=== PATIENT | female | born 1980 | race African-American/Black ===

== ENCOUNTER 2019-05-26 11:29 | Outpatient (CLI) | payer OTHER | END 2019-05-26 11:30 | disposition home or self-care (01) | LOC: DTY/OP 11:29 | PROVIDERS: ATTEND Surgery | DX: E66.01 Morbid (severe) obesity due to excess calories (principal) | CPT/HCPCS: 97802 ==

== ENCOUNTER 2019-06-26 16:00 | Outpatient (CLI) | payer OTHER | END 2019-06-26 16:01 | disposition home or self-care (01) | LOC: DTY/OP 16:00 | PROVIDERS: ATTEND Surgery | DX: E66.01 Morbid (severe) obesity due to excess calories (principal) | CPT/HCPCS: 97802 ==

== ENCOUNTER 2019-07-28 16:00 | Outpatient (CLI) | payer OTHER | END 2019-07-28 16:01 | disposition home or self-care (01) | LOC: DTY/OP 16:00 | PROVIDERS: ATTEND Surgery | DX: E66.01 Morbid (severe) obesity due to excess calories (principal) | CPT/HCPCS: 97802 ==

== ENCOUNTER 2019-08-28 16:00 | Outpatient (CLI) | payer OTHER | END 2019-08-28 16:01 | disposition home or self-care (01) | LOC: DTY/OP 16:00 | PROVIDERS: ATTEND Surgery | DX: E66.01 Morbid (severe) obesity due to excess calories (principal) | CPT/HCPCS: 97802 ==

== ENCOUNTER 2020-01-02 06:56 | Outpatient (CLI) | payer OTHER ==
--- NOTE | 2020-01-02 09:40 | RAD ---
XR Chest Pa Lat STANDARD HISTORY: Preop COMPARISON: 05/29/2014 FINDINGS: The heart size is normal. The lungs are well expanded without focal areas of consolidation, pneumothorax or pleural effusions. IMPRESSION: No radiographic evidence of acute cardiopulmonary process.
[2020-01-02 11:11] LABS: #Basophils 0.1 thou/uL (0.0-0.2); #Eosinphils 0.1 thou/uL (0.0-0.7); #Lymphocytes 1.4 thou/uL (1.20-3.40); #Monocytes 0.6 thou/uL (0.11-0.59); #Neutrophils 5.8 thou/uL (1.40-6.50); %Basophils 1.3 % (0.0-1.0); %Eosinophils 1.8 % (0.0-10.0); %Lymphocytes 17.4 % (21.0-51.0); %Monocytes 7.7 % (0.0-10.0); %Neutrophils 71.8 % (42.0-75.0); Hemoglobin 13.1 g/dL (12.0-16.0); Mean Corpuscular HGB CONC 33.5 g/dL (32.0-36.0); Mean Corpuscular Hemoglobin 27.6 pg (27.0-31.0); Mean Corpuscular Volume 82.6 fL (78.0-98.0); Mean Platelet Volume 8.6 fL (7.4-10.4); Platelet Count 294 thou/uL (130-400); RBC Distribution Width 12.9 % (11.5-14.5); Red Blood Cell (RBC) Count 4.75 mill/uL (4.20-5.40); White Blood Cell (WBC) Count 8.1 thou/uL (4.8-10.8)
[2020-01-02 11:21] LABS: BHCG - Serum Negative (NEGATIVE); Pregs Control Background? CLEAR/WHITE (CLR/WHITE); Pregs Control Bar Appear? YES (CONTROL BAR)
[2020-01-02 12:48] LABS: Hemoglobin A1c 5.3 % (4.0-6.0)
[2020-01-02 13:10] LABS: ALT (SGPT) 18 U/L (8-55); AST (SGOT) 19 U/L (5-34); Albumin 4.3 g/dL (3.5-5.0); Alkaline Phosphatase 69 U/L (40-110); Anion Gap 10 mmol/L (10-20); BUN (Urea Nitrogen) 16 mg/dL (7.0-18.7); Bilirubin, Total 0.7 mg/dL (0.2-1.2); Calc. Creatinine Clearance 0 mL/min (70-130); Calcium 9.2 mg/dL (7.8-10.44); Carbon Dioxide 27 mmol/L (22-29); Chloride 104 mmol/L (98-107); Estimated GFR-MDRD 77; Glucose 82 mg/dL (70-105); Protein, Total 7.3 g/dL (6.0-8.3); Sodium 137 mmol/L (136-145)
[2020-01-02 17:21] LABS: SARS-CoV-2 MS2 Positive; SARS-CoV-2 N Gene Negative; SARS-CoV-2 S Gene Negative; SARS-CoV-2 by NAA Not Detected (NotDetected); SARS-CoV-2 orf1ab Negative
--- NOTE | 2020-01-09 13:19 | EKG ---
Test Reason : EKG Blood Pressure : / mmHG Vent. Rate : 069 BPM Atrial Rate : 069 BPM P-R Int : 192 ms QRS Dur : 070 ms QT Int : 380 ms P-R-T Axes : 064 077 023 degrees QTc Int : 407 ms Normal sinus rhythm Normal ECG No previous ECGs available Confirmed by DR. Haroon FERNANDEZ ([id number]) on 01/09/2020 1:19:28 PM Referred By: DR ESCAMILLA Confirmed By:DR. Haroon FERNANDEZ
== END 2020-01-02 06:57 | disposition home or self-care (01) ==
LOC: LABBT 06:56 → SCSRAD 06:57
PROVIDERS: ATTEND Surgery
DX: Z01.818 Encounter for other preprocedural examination (principal); E66.01 Morbid (severe) obesity due to excess calories; Z20.828 Contact with and (suspected) exposure to other viral communicable diseases
CPT/HCPCS: 71046; 80053; 83036; 84703; 85025; 87635; 93005; 93010; U0003

== ENCOUNTER 2020-01-02 10:30 | Inpatient (IN) | payer OTHER ==
[2020-01-02 13:42] VITALS: BMI 42.0
[2020-01-05] MEDS ORDERED: Midazolam HCl 2 mg/2 ml Vial ONE (11:47)
[2020-01-05] MEDS ORDERED: Scopolamine 1.5 mg/72 hour Patch ONE (11:47)
[2020-01-05] MEDS ORDERED: Fentanyl 100 MCG/2 ML VIAL ONE ×3 (12:00→14:27)
[2020-01-05] MEDS ORDERED: Promethazine HCl 25 MG/ML VIAL SLOW IVP PRN (12:08)
[2020-01-05] MEDS ORDERED: Ketorolac Tromethamine 30 MG/ML VIAL IVP PRN (12:08)
[2020-01-05] MEDS ORDERED: Ondansetron HCl/PF 4 MG/2 ML Vial IVP PRN (12:08)
[2020-01-05] MEDS ORDERED: Promethazine HCl 25 MG/ML VIAL IM PRN ×3 (12:08→14:16)
[2020-01-05] MEDS ORDERED: Bupivacaine/Epinephrine 0.25% 30 ML VIAL ONE ×2 (12:17)
[2020-01-05] MEDS ORDERED: Ondansetron PF 4 MG/2 ML Vial IVP PRN ×2 (13:25→14:16)
[2020-01-05] MEDS ORDERED: Dextrose 5% in Water 1,000 ML IV PRN (13:25)
[2020-01-05] MEDS ORDERED: Dextrose 50% Abboject 50 ML SYRINGE SLOW IVP PRN (13:25)
[2020-01-05] MEDS ORDERED: hydrALAZINE 20 MG/ML VIAL SLOW IVP PRN (13:25)
[2020-01-05] MEDS ORDERED: Hydrocodone-Acetamin 15 ML UDCUP PO PRN ×2 (13:25→14:33)
[2020-01-05] MEDS ORDERED: diphenhydrAMINE 50 MG/ML VIAL IVP PRN ×2 (13:25→14:16)
[2020-01-05] MEDS ORDERED: PROPOFOL 200 MG/20 ML VIAL ONE (13:55)
[2020-01-05] MEDS ORDERED: Dexamethasone 20 MG/5 ML VIAL ONE (13:55)
[2020-01-05] MEDS ORDERED: Glycopyrrolate 0.2 MG/ML 5 ML SYRINGE ONE (13:55)
[2020-01-05] MEDS ORDERED: Ondansetron PF 4 MG/2 ML Vial ONE (13:55)
[2020-01-05] MEDS ORDERED: Rocuronium Bromide 10 MG/ML (10ML VIAL) ONE (13:55)
[2020-01-05] MEDS ORDERED: Lidocaine 1% PF 5 ML VIAL ONE (13:55)
[2020-01-05] MEDS ORDERED: diphenhydrAMINE 25 MG CAP PO PRN (14:16)
[2020-01-05] MEDS ORDERED: diphenhydrAMINE 50 MG/ML VIAL IM PRN (14:16)
[2020-01-05] MEDS ORDERED: Naloxone HCl 0.4 mg/ml Vial IV PRN (14:16)
[2020-01-05] MEDS ORDERED: HYDROmorphone 10 mg/100 ml CADD IVPB PRN (14:16)
[2020-01-05] MEDS ORDERED: Zolpidem Tartrate 5 MG TAB PO PRN (14:16)
[2020-01-05] MEDS ORDERED: Communication Order-Pharmacy FS SCH (14:30)
[2020-01-05] MEDS: D5 1/2 NS w/20 mEq KCL 1,000 ML IV SCH (16:10)
--- NOTE | 2020-01-05 17:15 | OP ---
DATE OF PROCEDURE: 01/05/2020 PREOPERATIVE DIAGNOSIS: Morbid obesity with a body mass index of 42. POSTOPERATIVE DIAGNOSES: 1. Morbid obesity with a body mass index of 42. 2. Paraesophageal hiatal hernia. PROCEDURES PERFORMED: 1. Laparoscopic sleeve gastrectomy with Ethicon staple line reinforcements and 38-[place] bougie. 2. Esophagogastroduodenoscopy. 3. Paraesophageal hiatal hernia repair, laparoscopic. ANESTHESIA: General. ESTIMATED BLOOD LOSS: 50 mL. COMPLICATIONS: None. SPECIMENS: None. FINDINGS: Normal postoperative EGD. DESCRIPTION OF PROCEDURE: The patient was taken to the operating room and laid supine on the operating room table. After general anesthetic was obtained, an OG tube was used to decompress the stomach and then removed. The arms and legs were double strapped to bariatric table. The abdomen was shaved, prepped, and draped in a sterile fashion. Left subcostal 5-mm Optiview trocar placed in the usual fashion and high-flow pneumoperitoneum was obtained. Left and right abdominal 12-mm ports as well as a right subcostal 5-mm port were all placed under direct visualization. A 5-mm incision was made at the xiphoid and a Micheal was used to raise the liver off the GE junction. The short gastrics were taken down from midbody of the stomach to left andrew of diaphragm. Left andrew, posterior fundus, and angle of His were completely dissected. This revealed a paraesophageal hiatal hernia. The fundus of the stomach was brought back into the abdominal cavity. A circumferential dissection of the esophagus was performed into the mediastinum. The gastrohepatic ligament was opened and the right adnrew of the diaphragm was exposed and the circumferential dissection was finished. A 38 bougie was brought in and its tip left in the antrum of the stomach. Multiple loads of an [place] stapling device with Ethicon reinforcements were used to form the sleeve. The first as a green load fired up at the distance of 6 cm proximal to the pylorus, angled up towards the incisura. Care was taken to avoid being too close to the incisura. Multiple green loads then fired up and the stomach was transected at the angle of His. Stomach was removed from the left abdominal incision. This fascial defect was closed using GraNee needle and 0 Vicryl tie. Two Ethicon sutures in the Ti-KNOT system were used to bring the right and left crura together posteriorly. This appeared to close the defect. No bleeding on the staple line. No bleeding in the abdomen. The bougie was removed. EGD scope was passed to the esophagus and stomach to the level of duodenum without obstruction. No stricture at the incisura. No stenosis at the GE junction or at the diaphragmatic hiatus. EGD scope was used to decompress the stomach and it was pulled and removed. Micheal retractor was removed under direct visualization without bleeding. Pneumoperitoneum was let down. A 4-0 Monocryl and Dermabond was used to close all skin incisions. The patient was sent to Recovery in stable condition. All instrument counts, needle counts, and lap counts were correct. Job ID: [id number]
[2020-01-05] MEDS ORDERED: Enoxaparin Sodium 40 MG/0.4 ML SYRINGE SC SCH (21:00)
[2020-01-06] MEDS: D5 1/2 NS w/20 mEq KCL 1,000 ML IV SCH (00:09)
[2020-01-06 05:31] LABS: #Lymphocytes 0.7 thou/uL (1.20-3.40); #Monocytes 1.1 thou/uL (0.11-0.59); #Neutrophils 13.4 thou/uL (1.40-6.50); %Basophils 0.2 % (0.0-1.0); %Lymphocytes 4.8 % (21.0-51.0); %Monocytes 7.1 % (0.0-10.0); %Neutrophils 87.9 % (42.0-75.0); Hemoglobin 13.7 g/dL (12.0-16.0); Mean Corpuscular HGB CONC 34.4 g/dL (32.0-36.0); Mean Corpuscular Hemoglobin 28.5 pg (27.0-31.0); Mean Corpuscular Volume 82.7 fL (78.0-98.0); Platelet Count 301 thou/uL (130-400); RBC Distribution Width 12.9 % (11.5-14.5); Red Blood Cell (RBC) Count 4.81 mill/uL (4.20-5.40); White Blood Cell (WBC) Count 15.2 thou/uL (4.8-10.8)
[2020-01-06 05:57] LABS: Anion Gap 12 mmol/L (10-20); BUN (Urea Nitrogen) 6 mg/dL (7.0-18.7); Calc. Creatinine Clearance 157 mL/min (70-130); Calcium 9.1 mg/dL (7.8-10.44); Carbon Dioxide 20 mmol/L (22-29); Chloride 103 mmol/L (98-107); Estimated GFR-MDRD 87; Glucose 149 mg/dL (70-105); Sodium 131 mmol/L (136-145)
[2020-01-06] MEDS ORDERED: Pantoprazole 40 MG VIAL IVP SCH (09:00)
[2020-01-06 10:59] VITALS: BP 122/80; TEMP 98.7
== END 2020-01-06 12:25 | disposition home or self-care (01) | DRG 621 ==
LOC: SURG A 01-05 09:37
PROVIDERS: ADMIT Surgery; ATTEND Surgery
PROC: 0DB64Z3 Excision of Stomach, Percutaneous Endoscopic Approach, Vertical (ICD-10-PCS; principal; 2020-01-05)
PROC: 0BQT4ZZ Repair Diaphragm, Percutaneous Endoscopic Approach (ICD-10-PCS; 2020-01-05)
PROC: 0DJ08ZZ Inspection of Upper Intestinal Tract, Via Natural or Artificial Opening Endoscopic (ICD-10-PCS; 2020-01-05)
DX: E66.01 Morbid (severe) obesity due to excess calories (principal); J30.2 Other seasonal allergic rhinitis; K44.9 Diaphragmatic hernia without obstruction or gangrene; Z68.41 Body mass index [BMI] 40.0-44.9, adult; Z79.899 Other long term (current) drug therapy; Z79.82 Long term (current) use of aspirin; Z88.2 Allergy status to sulfonamides; Z91.048 Other nonmedicinal substance allergy status
CPT/HCPCS: 36415; 71046; 80048; 80053; 83036; 84703; 85025; 87635; 88307; 88312; 93005; C9113; J0690; J1100; J1650; J2250; J2405; J2704; J3010; J3480; U0003

== ENCOUNTER 2022-09-18 20:37 | Emergency (ER) | payer OTHER, BC | END 2022-09-18 21:27 | disposition home or self-care (01) | LOC: ERS 20:37 | DX: S39.012A Strain of muscle, fascia and tendon of lower back, initial encounter (principal); V89.2XXA Person injured in unspecified motor-vehicle accident, traffic, initial encounter | CPT/HCPCS: 99283 ==

== ENCOUNTER 2023-02-09 13:48 | Outpatient (CLI) | payer BC | END 2023-02-09 13:49 | disposition home or self-care (01) | LOC: SCSRAD 13:48 | PROVIDERS: ATTEND Family Medicine | DX: M25.561 Pain in right knee (principal) ==